=== PATIENT | female | born 1960 | race American Indian/Alaskan Native ===

== ENCOUNTER 2020-08-17 19:14 | Emergency (ER) | payer SELFPAY ==
[2020-08-17 19:26] VITALS: BP 111/79
[2020-08-17 20:01] LABS: Basophils % (Auto) 0.8 % (0.0-1.8); Eosinophils # (Auto) 0.1 K/mm3 (0.0-0.4); Hematocrit 39.2 % (30.3-42.9); Hemoglobin 13.3 gm/dl (10.1-14.3); Lymphocytes # (Auto) 1.9 K/mm3 (1.2-5.4); Mean Corpuscular HGB Conc 34 % (30-34); Mean Corpuscular Volume 94 fl (79-97); Monocytes # (Auto) 0.3 K/mm3 (0.0-0.8); Monocytes % (Auto) 6.3 % (0.0-7.3); Platelet Count 265 K/mm3 (140-440); Red Blood Count 4.17 M/mm3 (3.65-5.03); Red Cell Distribution Width 14.2 % (13.2-15.2)
[2020-08-17 20:18] LABS: Alanine Aminotransferase 28 units/L (7-56); BUN/Creatinine Ratio 18; Blood Urea Nitrogen 16 mg/dL (7-17); Calcium 9.3 mg/dL (8.4-10.2); Hemolysis Index 53
== END 2020-08-18 | disposition left against medical advice (07) ==
LOC: ED 19:14
DX: R11.2 Nausea with vomiting, unspecified (principal); R42 Dizziness and giddiness; R51.9 Headache, unspecified; Z53.21 Procedure and treatment not carried out due to patient leaving prior to being seen by health care provider
CPT/HCPCS: 36415; 80053; 83690; 85025; 93005

== ENCOUNTER 2021-11-01 09:49 | Emergency (ER) | payer MEDICARE ==
[2021-11-01] MEDS ORDERED: ASPIRIN 81 MG TAB CHEW PO ONE (10:05)
[2021-11-01] MEDS ORDERED: HALOPERIDOL LACTATE 5 MG/1 ML INJ IV ONE (10:05)
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
[2021-11-01 11:14] LABS: Hematocrit 37.6 % (30.3-42.9); Hemoglobin 12.9 gm/dl (10.1-14.3); Mean Corpuscular HGB Conc 34 % (30-34); Mean Corpuscular Volume 93 fl (79-97); Platelet Count 205 K/mm3 (140-440); Red Blood Count 4.03 M/mm3 (3.65-5.03); Red Cell Distribution Width 14.5 % (13.2-15.2)
[2021-11-01 11:37] LABS: Blood Urea Nitrogen 10 mg/dL (7-17); Calcium 9.6 mg/dL (8.4-10.2); Hemolysis Index 11
[2021-11-01 11:44] LABS: BUN/Creatinine Ratio 14
[2021-11-01 15:39] VITALS: BP 121/72
--- NOTE | 2021-11-02 09:37 | Electrocardiograph Report ---
[facility] Test Date: 2021-11-01 Test Time: 10:30:48 Pat Name: LORI MARINELLI Department: Room: Gender: F [employer] Engineer: PSYCH THERAPIST : 1960 Requested By: MONIQUE MARTINEZ Order Number: [id number] Reading MD: Erick Yun Measurements Intervals Hamer Rate: 64 P: 56 OK: 156 QRS: -11 QRSD: 98 T: 26 QT: 459 QTc: 475 Interpretive Statements Sinus rhythm Ventricular bigeminy No previous ECG available for comparison Electronically Signed On 11-02-2021 9:37:08 EST by Erick Yun
== END 2021-11-01 12:38 | disposition home or self-care (01) ==
LOC: ED 09:49
DX: R07.89 Other chest pain (principal); R06.02 Shortness of breath; V89.2XXA Person injured in unspecified motor-vehicle accident, traffic, initial encounter; Y93.89 Activity, other specified; Y92.89 Other specified places as the place of occurrence of the external cause; Y99.8 Other external cause status; F17.200 Nicotine dependence, unspecified, uncomplicated
CPT/HCPCS: 36415; 71045; 80048; 84484; 85027; 93005; 93010; 96374; 99284; J1630